=== PATIENT | female | born 1990 | race Caucasian/White ===

== ENCOUNTER 2019-03-27 04:32 | Outpatient (CLI) | payer MEDICAID | END 2019-03-27 23:59 | disposition home or self-care (01) | LOC: LDOP 04:32 | PROVIDERS: ATTEND Obstetrics & Gynecology | DX: Z02.9 Encounter for administrative examinations, unspecified (principal) ==

== ENCOUNTER 2019-03-27 04:49 | Inpatient (IN) | payer MEDICAID ==
[~2019-03-27] VITALS: Ht 165.1 cm; Wt 77.0 kg
[~2019-03-27 04:49] MED LIST: HYDR-3240 PO; IBUP-11 PO
[2019-03-27] MEDS ORDERED: OXYTOCIN 30U/ 0.9% NaCL 500ML 500 ML IV ONE (05:04)
[2019-03-27] MEDS ORDERED: OXYTOCIN 30U/ 0.9% NaCL 500ML 500 ML IV PRN (05:04)
[2019-03-27] MEDS: D5%-LACTATED RINGERS 1,000 ML IV SCH ×2 (05:04→13:04)
[2019-03-27] MEDS ORDERED: FENTANYL/BUPIV./NS/PF 250 ML EPIDCONT SCH (05:06)
[2019-03-27] MEDS ORDERED: TERBUTALINE 1 MG/ML, 1ML IVPush PRN (05:30)
[2019-03-27] MEDS ORDERED: FENTANYL PF 100 MCG/2ML IV PRN (05:30)
[2019-03-27] MEDS ORDERED: FENTANYL PF 100 MCG/2ML IVPush PRN (05:30)
[2019-03-27] MEDS ORDERED: LACTATED RINGERS 1,000 ML IVBOLUS PRN (05:30)
[2019-03-27] MEDS ORDERED: ONDANSETRON 2MG/ML, 2ML IVPush PRN (05:30)
[2019-03-27] MEDS ORDERED: CALCIUM CARBONATE 500 MG TAB.CHEW PO PRN ×2 (05:30→16:00)
[2019-03-27] MEDS ORDERED: FENTANYL PF 500 MCG, BUPIVACAINE/PF 0.5%, 30ML 62.5 ML in SODIUM CHLORIDE 0.9% 177.5 ML EPIDCONT SCH (05:30)
[2019-03-27] MEDS ORDERED: PLEASE ENTER HEIGHT AND WEIGHT MC SCH (05:30)
[2019-03-27] MEDS ORDERED: EPHEDRINE 50 MG/ML, 1ML IVPush PRN (05:30)
[2019-03-27 05:47] LABS: BASOPHILS # (AUTO) 0.03 x10^3/uL (0-0.1); BASOPHILS % (AUTO) 0 % (0-1); EOSINOPHILS # (AUTO) 0.03 x10^3/uL (0-0.4); EOSINOPHILS % (AUTO) 0 % (1-7); LYMPHOCYTES # (AUTO) 1.62 x10^3/uL (1-3.4); LYMPHOCYTES % (AUTO) 16 % (22-44); MD NO; MEAN CORPUSCULAR HGB CONC 33.3 g/dL (32.4-35.8); MEAN PLATELET VOLUME 8.9 fL (7.4-10.4); MONOCYTES # (AUTO) 0.51 x10^3/uL (0.2-0.8); MONOCYTES % (AUTO) 5 % (2-9); NEUTROPHILS # (AUTO) 8.24 x10^3/uL (1.8-6.8); NEUTROPHILS % (AUTO) 79 % (42-75); PLATELET COUNT 194 x10^3/uL (130-400); RED BLOOD COUNT 3.79 x10^6/uL (3.82-5.3); RED CELL DISTRIBUTION WIDTH 13.5 % (9.6-15.2)
[2019-03-27] MEDS ORDERED: FENTANYL PF 100 MCG/2ML ONE ×2 (06:11→14:17)
[2019-03-27] MEDS ORDERED: BUPIVACAINE 0.25% ONE ×2 (06:11→14:16)
[2019-03-27] MEDS: LACTATED RINGERS 1,000 ML IV SCH ×5 (07:05→21:06)
[2019-03-27 12:30] VITALS: BP 113/74
[2019-03-27] MEDS ORDERED: PREN1TAB60 PO (13:17)
[2019-03-27] MEDS ORDERED: NEWBORN KIT ONE (15:32)
[2019-03-27] MEDS: OXYTOCIN 30U/ 0.9% NaCL 500ML 500 ML IV SCH (15:50)
[2019-03-27] MEDS ORDERED: MISOPROSTOL 200 MCG TABLET PR PRN (16:00)
[2019-03-27] MEDS ORDERED: ONDANSETRON 2MG/ML, 2ML IV PRN (16:00)
[2019-03-27] MEDS ORDERED: METHYLERGONOVINE 0.2 MG/ML IM PRN (16:00)
[2019-03-27] MEDS ORDERED: ACETAMINOPHEN 325 MG TABLET PO PRN (16:00)
[2019-03-27 17:50] VITALS: BP 110/62
[2019-03-27] MEDS: IBUPROFEN 600 MG TABLET PO PRN (19:28)
[2019-03-27] MEDS: DOCUSATE 100 MG CAPSULE PO PRN (19:29)
[2019-03-27 20:00] VITALS: BP 93/54
[2019-03-27] MEDS: OXYcodone/APAP 5/325MG TABLET PO PRN (20:47)
[2019-03-28 00:03] LABS: BASOPHILS # (AUTO) 0.05 x10^3/uL (0-0.1); BASOPHILS % (AUTO) 0 % (0-1); EOSINOPHILS # (AUTO) 0.07 x10^3/uL (0-0.4); EOSINOPHILS % (AUTO) 1 % (1-7); LYMPHOCYTES # (AUTO) 2.37 x10^3/uL (1-3.4); LYMPHOCYTES % (AUTO) 17 % (22-44); MD NO; MEAN CORPUSCULAR HEMOGLOBIN 33.3 pg (27.0-34.8); MEAN CORPUSCULAR HGB CONC 33.4 g/dL (32.4-35.8); MEAN PLATELET VOLUME 8.9 fL (7.4-10.4); MONOCYTES % (AUTO) 5 % (2-9); NEUTROPHILS # (AUTO) 10.51 x10^3/uL (1.8-6.8); NEUTROPHILS % (AUTO) 77 % (42-75); PLATELET COUNT 171 x10^3/uL (130-400); RED CELL DISTRIBUTION WIDTH 13.5 % (9.6-15.2)
[2019-03-28 01:30] VITALS: BP 114/70
[2019-03-28] MEDS: IBUPROFEN 600 MG TABLET PO PRN ×3 (01:41→18:10)
[2019-03-28] MEDS: OXYTOCIN 30U/ 0.9% NaCL 500ML 500 ML IV SCH ×3 (01:50→21:50)
[2019-03-28] MEDS: OXYcodone/APAP 5/325MG TABLET PO PRN ×4 (03:49→18:10)
[2019-03-28 03:51] VITALS: BP 112/62
[2019-03-28] MEDS: LACTATED RINGERS 1,000 ML IV SCH ×3 (05:06→21:06)
[2019-03-28 07:32] VITALS: BP 114/75
[2019-03-28] MEDS: PRENATAL VIT/IRON/FA 1 EACH TABLET PO SCH (08:30)
[2019-03-28] MEDS: DOCUSATE 100 MG CAPSULE PO PRN ×2 (08:30→19:44)
[2019-03-28 13:25] VITALS: BP 107/66
[2019-03-28 20:00] VITALS: BP 100/65
[2019-03-29] MEDS: IBUPROFEN 600 MG TABLET PO PRN ×3 (00:03→15:38)
[2019-03-29] MEDS: OXYcodone/APAP 5/325MG TABLET PO PRN ×3 (02:01→15:38)
[2019-03-29] MEDS: LACTATED RINGERS 1,000 ML IV SCH (05:06)
[2019-03-29 07:20] VITALS: BP 113/75
[2019-03-29] MEDS: OXYTOCIN 30U/ 0.9% NaCL 500ML 500 ML IV SCH (07:50)
[2019-03-29] MEDS: DOCUSATE 100 MG CAPSULE PO PRN (08:05)
[2019-03-29] MEDS: PRENATAL VIT/IRON/FA 1 EACH TABLET PO SCH (08:05)
[2019-03-29] MEDS ORDERED: IBUP-1223 PO (15:56)
[2019-03-29] MEDS ORDERED: OXYC-302 PO (15:57)
== END 2019-03-29 16:26 | disposition home or self-care (01) | DRG 560 ==
LOC: LDIP 04:49 → 2NW 17:40
PROVIDERS: ADMIT Obstetrics & Gynecology; ATTEND Obstetrics & Gynecology
PROC: 10E0XZZ Delivery of Products of Conception, External Approach (ICD-10-PCS; principal; 2019-03-27)
PROC: 3E0R3BZ Introduction of Anesthetic Agent into Spinal Canal, Percutaneous Approach (ICD-10-PCS; 2019-03-27)
PROC: 00HU33Z Insertion of Infusion Device into Spinal Canal, Percutaneous Approach (ICD-10-PCS; 2019-03-27)
DX: O69.81X0 Labor and delivery complicated by cord around neck, without compression, not applicable or unspecified (principal); O36.5930 Maternal care for other known or suspected poor fetal growth, third trimester, not applicable or unspecified; Z37.0 Single live birth; Z3A.38 38 weeks gestation of pregnancy; Z82.49 Family history of ischemic heart disease and other diseases of the circulatory system; Z83.3 Family history of diabetes mellitus
CPT/HCPCS: 36415; 82803; 85025; 86850; 86900; G0378; J3010; J2590; J7050; J7120